=== PATIENT | female | born 1965 | race Caucasian/White ===

== ENCOUNTER 2016-11-26 22:19 | Emergency (ER) | payer BC, OTHER ==
[~2016-11-26] VITALS: Ht 165.1 cm; Wt 93.9 kg
[~2016-11-26 22:19] MED LIST: CANA1TAB PO; GABA-112 PO; GLIM4TAB2 PO; METF-384 PO; SIMV20TA2 PO
[2016-11-26 22:22] VITALS: TEMP 36.7; Ht 165.1 cm; Wt 93.9 kg
[2016-11-26] MEDS ORDERED: ONDANSETRON INJ 2 MG/ML 2 ML VIAL IV STA (22:29)
[2016-11-26] MEDS ORDERED: SODIUM CHLORIDE 0.9% 1000ML 1,000 ML IV STA (22:29)
[2016-11-26] MEDS ORDERED: LIDOCAINE HCL 2% VISC SOLN 20 ML UDC PO STA (22:29)
[2016-11-26] MEDS ORDERED: SODIUM CHLORIDE 0.9% 500ML 500 ML IV STA (22:29)
[2016-11-26] MEDS ORDERED: ALUMINUM/MAGNESIUM SUSP 30 ML UDC PO STA (22:29)
--- NOTE | 2016-11-26 22:50 | DIAGNOSTIC IMAGING REPORT ---
CHEST ONE VIEW PORTABLE CLINICAL HISTORY: 51 years-old Female presenting with CHEST PAIN. TECHNIQUE: Portable upright AP view of the chest was obtained. COMPARISON: None. FINDINGS: Cardiomediastinal silhouette normal. Lungs and pleural spaces clear. Osseous structures normal. Upper abdomen normal. IMPRESSION: 1. No acute cardiopulmonary disease. Electronically signed by: Mika Valerio M.D. 11/26/2016 10:48 PM Dictated Date/Time: 11/26/2016 10:48 PM
[2016-11-26 22:52] VITALS: O2SAT 99
[2016-11-26 23:12] LABS: BASO ABS # 0.09 K/uL (0-0.2); COMPLETE YES; EOS % 2.7 %; HEMATOCRIT 42.5 % (37-47); IG% 0.6 %; LYMPH % 26.4 %; LYMPH ABS # 2.45 K/uL (1.2-3.4); MEAN CELL VOLUME 82.7 fL (80-100); MEAN CORPUSCULAR HEMOGLOBIN 30.5 pg (25-34); MEAN CORPUSCULAR HGB CONC 36.9 g/dl (32-36); MEAN PLATELET VOLUME 10.1 fL (7.4-10.4); MONO % 8.7 %; NEUT % 60.6 %; PLATELET COUNT 325 K/uL (130-400); RED BLOOD COUNT 5.14 M/uL (4.2-5.4); WHITE BLOOD COUNT 9.28 K/uL (4.8-10.8)
[2016-11-26] MEDS ORDERED: GLIM2TAB2 PO (23:27)
[2016-11-26] MEDS ORDERED: ASPI81TA28 PO (23:27)
[2016-11-26] MEDS ORDERED: LISI-729 PO (23:27)
[2016-11-26] MEDS ORDERED: GABA1CAP5 PO (23:27)
[2016-11-26 23:30] LABS: ALT/SGPT 28 U/L (12-78); AST/SGOT 17 U/L (15-37); BLOOD UREA NITROGEN 13 mg/dl (7-18); BUN/CREATININE RATIO 16.3 (10-20); CARBON DIOXIDE 27 mmol/L (21-32); CHLORIDE 105 mmol/L (98-107); CREATININE 0.79 mg/dl (0.60-1.20); GLUCOSE 149 mg/dl (70-99); POTASSIUM 3.7 mmol/L (3.5-5.1); SODIUM 141 mmol/L (136-145)
[2016-11-26 23:35] LABS: ALKALINE PHOSPHATASE 112 U/L (45-117)
[2016-11-27] MEDS ORDERED: SUCRALFATE 1 GM/10 ML UDC PO STA (00:33)
[2016-11-27] MEDS ORDERED: PANTOprazole SOD 40 MG TAB PO STA (02:21)
[2016-11-27] MEDS ORDERED: PANT40TA PO (02:23)
[2016-11-27 02:45] VITALS: BP 129/54; PULSE 61; O2SAT 98
--- NOTE | 2016-11-27 06:59 | EMERGENCY ROOM VISIT NOTE ---
History First contact with patient: 22:25 Chief Complaint: ABDOMINAL PAIN Stated Complaint: SEVERE STOMACH PAIN Nursing Triage Summary: Pt states that she has been experincing right upper quadrant for the past 2 weeks. Pt has had no appetite and nausea. Pt denies any V/D or fever. Pt states that he pain is a constant pain and 8 out of 10 on pain scale. Pt has not taken anything to try and relieve the pain. Pt states that the pain is getting worse and that is why she came into the ED. Pt has hypoactive bowel sounds x4. Pt is tender to palpation in the right upper quadrant. History of Present Illness The patient is a 51 year old female who presents to the Emergency Room with complaints of epigastric discomfort for the past several weeks that has gotten progressively worse. Patient states she takes a lot of Motrin. She is status post cholecystectomy. No black or blood in her stool. She described pain as irritating, ranging in severity 7 out of 10. Nothing makes it better or worse. She drinks a lot of coffee. Patient denies chest pain, dyspnea, fever, chills , vomiting, diarrhea, back pain, urinary symptoms. She is tolerate by mouth fluids and food. Review of Systems See HPI for pertinent positives & negatives. A total of 10 systems reviewed and were otherwise negative. Past Medical/Surgical History Medical Problems: (1) No Known Active Medical Problems Family History Patient reports no known family medical history. Social History Smoking Status: Current Every Day Smoker Housing Status: lives with family Current/Historical Medications Scheduled Aspirin (Aspirin Ec), 81 MG PO DAILY Canagliflozin (Invokana), 100 MG PO QAM Gabapentin (Neurontin), 400 MG PO BID Glimepiride (Glimepiride), 2 MG PO BID Lisinopril (Prinivil), 5 MG PO QAM Metformin Hcl (Glucophage), 1,000 MG PO BID Pantoprazole (Protonix), 40 MG PO DAILY Simvastatin (Zocor), 20 MG PO QPM Allergies Coded Allergies: No Known Allergies (Unverified , 11/26/16) Physical Exam Vital Signs Date Time Temp Pulse Resp B/P (MAP) Pulse Ox O2 Delivery O2 Flow Rate FiO2 11/27/16 02:45 61 16 129/54 98 11/27/16 02:14 64 11/27/16 01:23 75 18 130/59 97 Room Air 11/26/16 23:47 57 18 130/65 99 Room Air 11/26/16 23:01 68 11/26/16 22:52 99 Room Air 11/26/16 22:52 99 Room Air 11/26/16 22:22 36.7 78 16 153/81 97 Room Air Pain Rating (0-10): 5.0 Physical Exam VITALS: Vitals are noted on the nurse's note and reviewed by myself. Vital signs stable. GENERAL: Pleasant female, in no acute distress, nondiaphoretic, well-developed well-nourished. SKIN: The skin was without rashes, erythema, edema, or bruising. There is no tenting of the skin. Capillary reflex less than 2 seconds. HEAD: Normocephalic atraumatic. EARS: External auditory canals clear, tympanic membranes pearly freeman without erythema or effusion bilaterally. EYES: Pupils equal round and reactive to light and accommodation. Conjunctivae without injection, sclerae without icterus. Extraocular movements intact. NOSE: Patent, turbinates without inflammation or discharge. MOUTH: Mucous membranes moist. Pharynx without erythema or exudate. Uvula midline. Airway patent. Tongue does not deviate. NECK: Supple without nuchal rigidity. No lymphadenopathy. No thyromegaly. Cervical spine is nontender. No JVD. HEART: Regular rate and rhythm LUNGS: Clear to auscultation bilaterally without wheezes, rales or rhonchi. No dullness to percussion. No retractions or accessory muscle use. ABDOMEN: Positive bowel sounds x 4. Normal tympanic percussion. Soft, tender to palpation epigastric region, no CVA tenderness, without masses or organomegaly. Beasley sign negative. No guarding or rebound tenderness. MUSCULOSKELETAL: No muscle atrophy, erythema, or edema noted. NEURO: Patient was alert and oriented to person place and time. Normal sensation to light and sharp touch. No focal neurological deficits. Medical Decision & Procedures Laboratory Results 11/26/16 23:00 Red Blood Count 5.14, Mean Corpuscular Volume 82.7, Mean Corpuscular Hemoglobin 30.5, Mean Corpuscular Hemoglobin Concent 36.9, Mean Platelet Volume 10.1, Neutrophils (%) (Auto) 60.6, Lymphocytes (%) (Auto) 26.4, Monocytes (%) (Auto) 8.7, Eosinophils (%) (Auto) 2.7, Basophils (%) (Auto) 1.0, Neutrophils # (Auto) 5.62, Lymphocytes # (Auto) 2.45, Monocytes # (Auto) 0.81, Eosinophils # (Auto) 0.25, Basophils # (Auto) 0.09 11/26/16 23:00 Test 11/26/16 23:00 11/26/16 23:11 White Blood Count 9.28 K/uL (4.8-10.8) Red Blood Count 5.14 M/uL (4.2-5.4) Hemoglobin 15.7 g/dL (12.0-16.0) Hematocrit 42.5 % (37-47) Mean Corpuscular Volume 82.7 fL (80-100) Mean Corpuscular Hemoglobin 30.5 pg (25-34) Mean Corpuscular Hemoglobin Concent 36.9 g/dl (32-36) Platelet Count 325 K/uL (130-400) Mean Platelet Volume 10.1 fL (7.4-10.4) Neutrophils (%) (Auto) 60.6 % Lymphocytes (%) (Auto) 26.4 % Monocytes (%) (Auto) 8.7 % Eosinophils (%) (Auto) 2.7 % Basophils (%) (Auto) 1.0 % Neutrophils # (Auto) 5.62 K/uL (1.4-6.5) Lymphocytes # (Auto) 2.45 K/uL (1.2-3.4) Monocytes # (Auto) 0.81 K/uL (0.11-0.59) Eosinophils # (Auto) 0.25 K/uL (0-0.5) Basophils # (Auto) 0.09 K/uL (0-0.2) RDW Standard Deviation 38.0 fL (36.4-46.3) RDW Coefficient of Variation 12.7 % (11.5-14.5) Immature Granulocyte % (Auto) 0.6 % Immature Granulocyte # (Auto) 0.06 K/uL (0.00-0.02) Anion Gap 9.0 mmol/L (3-11) Est Creatinine Clear Calc Drug Dose 93.3 ml/min Estimated GFR () 99.1 Estimated GFR (Non- 85.5 BUN/Creatinine Ratio 16.3 (10-20) Calcium Level 9.0 mg/dl (8.5-10.1) Total Bilirubin 0.3 mg/dl (0.2-1) Direct Bilirubin < 0.1 mg/dl (0-0.2) Aspartate Amino Transf (AST/SGOT) 17 U/L (15-37) Alanine Aminotransferase (ALT/SGPT) 28 U/L (12-78) Alkaline Phosphatase 112 U/L (45-117) Troponin I < 0.015 ng/ml (0-0.045) Total Protein 7.6 gm/dl (6.4-8.2) Albumin 3.4 gm/dl (3.4-5.0) Lipase 391 U/L (73-393) Bedside Troponin I < 0.030 ng/ml (0-0.045) Medications Administered Medications (Trade) Dose Ordered Sig/Gonzalo Route Start Time Stop Time Status Last Admin Dose Admin Lidocaine HCl (Viscous Lidocaine 2% Soln) 10 ml NOW STAT PO 11/26/16 22:29 11/26/16 22:31 DC 11/26/16 23:01 10 ML Al Hydroxide/Mg Hydroxide (Maalox Susp) 30 ml NOW STAT PO 11/26/16 22:29 11/26/16 22:31 DC 11/26/16 23:01 30 ML Sodium Chloride 1,000 ml @ 125 mls/hr Q8H STAT IV 11/26/16 22:29 11/27/16 03:25 DC 11/26/16 23:36 125 MLS/HR Sodium Chloride 500 ml @ 999 mls/hr Q31M STAT IV 11/26/16 22:29 11/26/16 22:59 DC 11/26/16 23:02 999 MLS/HR Ondansetron HCl (Zofran Inj) 4 mg NOW STAT IV 11/26/16 22:29 11/26/16 22:31 DC 11/26/16 23:01 4 MG Sucralfate (Carafate Susp) 1 gm NOW STAT PO 11/27/16 00:33 11/27/16 00:34 DC 11/27/16 01:23 1 GM Pantoprazole Sodium (Protonix Tab) 40 mg NOW STAT PO 11/27/16 02:21 11/27/16 02:22 DC 11/27/16 02:45 40 MG ED Course Prior records/ancillary studies reviewed. Triage Nursing notes reviewed. Additional history obtained from family The patient's history was concerning for abdominal pain. Differential diagnosis: Etiologies such as appendicitis, diverticulitis, PUD, biliary pathology, UTI, pancreatitis, obstruction, mesenteric ischemia, aortic pathology, infections, inflammatory bowel disease, renal colic, as well as others were entertained. Physical examination findings: As above. ER treatment provided: GI cocktail, Carafate On reassessment the patient felt better. Diagnostics interpreted by me: ECG: Normal sinus, normal intervals, no acute ST-T wave changes. Impression normal sinus rhythm interpreted myself The labs revealed negative troponin. Stable H&H Imaging studies: Ultrasound negative for dilated common bile duct per radiology Exam and history seem consistent with epigastric discomfort most likely related to reflux. Patient drinks a lot of coffee and takes a lot of Motrin. She was started on a PPI. She felt much better to be medicated as above. She did not have an acute abdomen on exam. No black or blood in the stool. She is advised to follow-up family care in a few days or here in the ER sooner for abdominal pain, fevers, chest pain, black or blood in her stool, worsening signs or symptoms or as needed. By the evaluation outlined above emergent etiologies such as appendicitis, diverticulitis, biliary pathology, UTI, pancreatitis, obstruction, mesenteric ischemia, aortic pathology, infections, inflammatory bowel disease, renal colic , as well as others were deemed relatively unlikely. The pt informed about the findings as listed above. All questions were answered and pleased with the treatment. Return instructions were outlined and the patient was discharged in stable condition. Outpatient prescription management: Protonix Referral: The patient was referred back to their primary care physician for follow-up in 2 to 3 days for a recheck of the current condition. Case reviewed with my attending Medical Decision As above Impression Primary Impression: GERD (gastroesophageal reflux disease) Additional Impression: Abdominal discomfort, epigastric Departure Information Dispostion Home / Self-Care Condition GOOD Prescriptions Pantoprazole (Protonix) 40 Mg Tab 40 MG PO DAILY for 14 Days, #14 TAB Prov: Miriam Lovett PA-C 11/27/16 Forms Call Back Authorization, HOME CARE DOCUMENTATION FORM, IMPORTANT VISIT INFORMATION Patient Instructions GERD, My [facility], ED Epigastric Pain [facility] Additional Instructions Protonix 40 m tablet daily for next 2 weeks. Take this on an empty stomach. Try Maalox or Zantac for breakthrough symptoms for reflux. Avoid large meals. Avoid acidic foods. Rest and drink plenty of fluids as tolerated. Continue current medications. Avoid strenuous activities and anything that worsens your pain. Resume normal activities once your symptoms resolve. Return to the ER immediately for worsening or persistent chest pain, abdominal pain, black or blood in your stools, vomiting, fevers, chest pains, difficulty breathing, worsening of your condition, or as needed. Follow up with your primary physician in 2-3 days for a recheck of your current condition. Problem Qualifiers Primary Impression: GERD (gastroesophageal reflux disease) Esophagitis presence: esophagitis presence not specified Qualified Codes: K21.9 - Gastro-esophageal reflux disease without esophagitis
--- NOTE | 2016-11-27 08:13 | DIAGNOSTIC IMAGING REPORT ---
GALLBLADDER-ABD LIMITED HISTORY: 51 years-old Female acute severe right upper quadrant abdominal pain, ? retained stone in duct COMPARISON: Gallbladder ultrasound 03/07/2016 TECHNIQUE: Multiple real-time sonographic images of the abdominal right upper quadrant were obtained assessing grayscale appearance and color flow FINDINGS: Pancreas is partially obscured by bowel gas with imaged portions appearing unremarkable. There is increased echogenicity of the hepatic parenchyma suggesting fatty infiltration. No focal hepatic mass lesions are identified. Liver measures up to 19.5 cm. Common bile duct measures 0.5 cm. 7 x 4 mm ill-defined echogenicity of the common bile duct seen on image 33 of 37 is likely artifactual. No shadowing choledocholithiasis identified. Prior cholecystectomy. Imaged right kidney is unremarkable without hydronephrosis. IMPRESSION: 1. Prior cholecystectomy. 2. Ill-defined 7 mm echogenicity of the common bile duct is likely artifactual without shadowing choledocholithiasis or ductal dilation identified. 3. Fatty infiltration of the liver. The above report was generated using voice recognition software. It may contain grammatical, syntax or spelling errors. Electronically signed by: Mauricio Robles M.D. 11/27/2016 8:12 AM Dictated Date/Time: 11/27/2016 8:08 AM
== END 2016-11-27 02:46 | disposition home or self-care (01) ==
LOC: C.EDB 22:19 → C.EDC 11-27 02:46
DX: K21.9 Gastro-esophageal reflux disease without esophagitis (principal); R10.13 Epigastric pain; F17.200 Nicotine dependence, unspecified, uncomplicated; Z79.82 Long term (current) use of aspirin; Z79.84 Long term (current) use of oral hypoglycemic drugs; Z79.899 Other long term (current) drug therapy